=== PATIENT | female | born 1990 | race Caucasian/White ===

== ENCOUNTER 2020-11-13 00:02 | Inpatient (IN) ==
[2020-11-13] MEDS ORDERED: Metoclopramide 10 MG/2 ML VIAL IVP PRN (00:04)
[2020-11-13] MEDS ORDERED: Lidocaine 1% 20 ML MDV INFILT PRN (00:04)
[2020-11-13] MEDS ORDERED: Naloxone 0.4 MG/ML INJ IVP PRN (00:04)
[2020-11-13] MEDS ORDERED: *HR* Nalbuphine 10 MG/ML AMPUL IV PRN (00:04)
[2020-11-13] MEDS ORDERED: Ondansetron 4 MG/2 ML VIAL IVP PRN (00:04)
[2020-11-13] MEDS ORDERED: Famotidine 20 MG/2 ML VIAL IVP PRN (00:04)
[2020-11-13] MEDS ORDERED: Ringers Solution, Lactated 1,000 ML IVC SCH (00:15)
[2020-11-13 00:37] LABS: Basophils # 0.1 K/mcL (0.0-0.2); Basophils % 0.4 %; Eosinophils # 0.2 K/mcL (0.0-0.6); Hematocrit 37.7 % (35.3-44.9); Hemoglobin 11.9 g/dL (11.5-15.4); Immature Granulocytes % 1.3 % (0-4); Lymphocytes # 2.2 K/mcL (0.6-4.6); Lymphocytes % 14.8 %; Mean Corpuscular HGB Conc 31.6 g/dL (31.6-35.5); Mean Corpuscular Hemoglobin 26.7 pg (28.0-33.3); Mean Corpuscular Volume 84.5 fL (83.0-100.0); Mean Platelet Volume 11.3 fL (9.4-12.4); Monocytes % 6.8 %; Neutrophils # 11.2 K/mcL (1.6-8.9); Platelet Count 314 K/mcL (140-400); Red Blood Count 4.46 M/mcL (3.82-4.97); Red Cell Distribution Width 15.4 % (11.5-14.5); Segmented Neutrophils % 75.7 %; White Blood Count 14.8 K/mcL (4.3-11.1)
[2020-11-13 00:44] LABS: Amphetamine Screen,Urine Negative ng/mL (Cutoff=1000); Barbiturate Screen,Urine Negative ng/mL (Cutoff=200); Benzodiazepines Screen,Urine Negative ng/mL (Cutoff=200); Cannabinoid Screen,Urine Negative ng/mL (Cutoff = 50); Cocaine Screen,Urine Negative ng/mL (Cutoff= 300); Opiate Screen,Urine Negative ng/mL (Cutoff=300); Phencyclidine Screen,Urine Negative ng/mL (Cutoff=25); Protein/Creatinine Ratio,Urine 0.17 mg/mg (0.00-0.20)
[2020-11-13] MEDS: miSOPROStoL 25 MCG TABLET PO PRN ×2 (00:48→04:55)
[2020-11-13 00:54] LABS: Alanine Aminotransferase 10 Units/L (7-52); Aspartate Amino Transferase 12 Units/L (13-39); BUN/Creatinine Ratio 18 (6-26); Blood Urea Nitrogen 11 mg/dL (6-20); Lactate Dehydrogenase 133 Units/L (140-271); Uric Acid 4.1 mg/dL (2.3-7.6); eGFR For African Americans > 60 (> 60); eGFR For Non-African Americans > 60 (> 60)
[2020-11-13 01:09] LABS: Influenza A PCR Negative (Negative); Influenza B PCR Negative (Negative); Resp. Syncytial Virus PCR Negative (Negative)
[2020-11-13 01:12] LABS: SARS-CoV-2 by PCR (In House) Negative (Negative)
[2020-11-13] MEDS ORDERED: Epidural Premix (fent/bupiv) 110 ML EP SCH (08:30)
[2020-11-13] MEDS ORDERED: EPHEDrine 50 MG/ML VIAL IVP PRN (08:30)
[2020-11-13] MEDS ORDERED: miSOPROStoL 25 MCG TABLET PO ONE (09:00)
== END 2020-11-13 14:45 | disposition home or self-care (01) | DRG 833 ==
LOC: 1NENULAB 00:02
PROVIDERS: ADMIT Student in an Organized Health Care Education/Training Program; ATTEND Student in an Organized Health Care Education/Training Program

== ENCOUNTER 2020-11-19 23:56 | Inpatient (IN) ==
[2020-11-20] MEDS ORDERED: Acetaminophen 325 MG TABLET PO ONE (00:58)
[2020-11-20] MEDS ORDERED: Ringers Solution, Lactated 1,000 ML ONE (01:01)
[2020-11-20] MEDS ORDERED: Famotidine 20 MG/2 ML VIAL IVP PRN (01:14)
[2020-11-20] MEDS ORDERED: Metoclopramide 10 MG/2 ML VIAL IVP PRN (01:14)
[2020-11-20] MEDS ORDERED: Naloxone 0.4 MG/ML INJ IVP PRN ×2 (01:14→14:36)
[2020-11-20] MEDS ORDERED: Ringers Solution, Lactated 1,000 ML IVC SCH (01:15)
[2020-11-20 01:45] LABS: Basophils # 0.1 K/mcL (0.0-0.2); Basophils % 0.3 %; Eosinophils # 0.1 K/mcL (0.0-0.6); Eosinophils % 0.9 %; Hematocrit 36.5 % (35.3-44.9); Hemoglobin 11.6 g/dL (11.5-15.4); Lymphocytes # 2.1 K/mcL (0.6-4.6); Lymphocytes % 14.6 %; Mean Corpuscular HGB Conc 31.8 g/dL (31.6-35.5); Mean Corpuscular Hemoglobin 26.6 pg (28.0-33.3); Mean Corpuscular Volume 83.7 fL (83.0-100.0); Mean Platelet Volume 11.9 fL (9.4-12.4); Monocytes % 6.7 %; Platelet Count 301 K/mcL (140-400); Protein/Creatinine Ratio,Urine 0.14 mg/mg (0.00-0.20); Red Blood Count 4.36 M/mcL (3.82-4.97); Red Cell Distribution Width 15.2 % (11.5-14.5); Segmented Neutrophils % 76.5 %; White Blood Count 14.4 K/mcL (4.3-11.1)
[2020-11-20 01:46] LABS: Amphetamine Screen,Urine Negative ng/mL (Cutoff=1000); Barbiturate Screen,Urine Negative ng/mL (Cutoff=200); Benzodiazepines Screen,Urine Negative ng/mL (Cutoff=200); Cannabinoid Screen,Urine Negative ng/mL (Cutoff = 50); Cocaine Screen,Urine Negative ng/mL (Cutoff= 300); Opiate Screen,Urine Negative ng/mL (Cutoff=300); Phencyclidine Screen,Urine Negative ng/mL (Cutoff=25)
[2020-11-20 01:57] LABS: Alanine Aminotransferase 8 Units/L (7-52); Aspartate Amino Transferase 13 Units/L (13-39); BUN/Creatinine Ratio 16 (6-26); Blood Urea Nitrogen 9 mg/dL (6-20); Lactate Dehydrogenase 146 Units/L (140-271); Uric Acid 4.4 mg/dL (2.3-7.6); eGFR For African Americans > 60 (> 60); eGFR For Non-African Americans > 60 (> 60)
[2020-11-20] MEDS: miSOPROStoL 25 MCG TABLET PO PRN ×2 (02:09→06:09)
[2020-11-20 02:45] LABS: Adenovirus Not Detected (Not Detect); Bordetella Pertussis Not Detected (Not Detect); Chlamydophila pneumoniae Not Detected (Not Detect); Coronavirus 229E Not Detected (Not Detect); Coronavirus HKU1 Not Detected (Not Detect); Coronavirus NL63 Not Detected (Not Detect); Coronavirus OC43 Not Detected (Not Detect); Human Metapneumovirus Not Detected (Not Detect); Human Rhinovirus/Enterovirus Not Detected (Not Detect); Influenza A Subtype 2009 H1 Not Detected (Not Detect); Influenza B Not Detected (Not Detect); Mycoplasma pneumoniae Not Detected (Not Detect); Parainfluenza Virus 1 Not Detected (Not Detect); Parainfluenza Virus 2 Not Detected (Not Detect); Parainfluenza Virus 3 Not Detected (Not Detect); Parainfluenza Virus 4 Not Detected (Not Detect); Respiratory Syncytial Virus Not Detected (Not Detect); SARS-CoV-2 Not Detected (Not Detect)
[2020-11-20] MEDS: Ringers Solution, Lactated 1,000 ML IVC SCH ×4 (06:09→23:44)
[2020-11-20] MEDS: miSOPROStoL 25 MCG TABLET PO SCH ×3 (10:46→21:43)
[2020-11-20] MEDS ORDERED: *HR* FentaNYL (PF) 100 MCG/2 ML VIAL EP ONE (14:36)
[2020-11-20] MEDS ORDERED: Ropivacaine/PF 0.2% 20 ML VIAL EP ONE (14:36)
[2020-11-20] MEDS ORDERED: Ondansetron 4 MG/2 ML VIAL IVP PRN (14:36)
[2020-11-20] MEDS ORDERED: EPHEDrine 50 MG/ML VIAL IVP PRN (14:36)
[2020-11-20] MEDS: Epidural Premix (fent/bupiv) 110 ML EP SCH (21:43)
[2020-11-20] MEDS ORDERED: Oxytocin 20 units/ LR 1000 mL 20 UNIT/1,000 ML BAG IVC SCH (22:15)
[2020-11-21] MEDS ORDERED: 0.9 % Sodium Chloride 1,000 ML ONE (01:47)
[2020-11-21] MEDS: Epidural Premix (fent/bupiv) 110 ML EP SCH (03:48)
[2020-11-21] MEDS: Ringers Solution, Lactated 1,000 ML IVC SCH (03:49)
[2020-11-21] MEDS ORDERED: Penicillin G Potassium 5,000,000 UNIT in 0.9 % Sodium Chloride Mini Bag 100 ML IVPB ONE (10:27)
[2020-11-21] MEDS ORDERED: Ropivacaine/PF 0.2% 20 ML VIAL ONE (13:43)
[2020-11-21] MEDS: Penicillin G Potassium 2,500,000 UNIT/105 ML MLS IVPB SCH ×2 (17:19→21:25)
[2020-11-21] MEDS ORDERED: Lidocaine 1% 20 ML MDV ONE (22:24)
[2020-11-21] MEDS ORDERED: Measles/Mumps/Rubella Vacc 0.5 ML VIAL SQ PRN (23:50)
[2020-11-21] MEDS ORDERED: Oxytocin 20 units/ LR 1000 mL 20 UNIT/1,000 ML BAG IVC SCH (23:50)
[2020-11-21] MEDS ORDERED: Lanolin 7 G OINT...G. TP PRN (23:50)
[2020-11-21] MEDS ORDERED: Ondansetron ODT 4 MG TAB.RAPDIS SL PRN (23:50)
[2020-11-21] MEDS ORDERED: Benzocaine/Menthol 56 GM AEROSOL SPRAY TP PRN (23:50)
[2020-11-22] MEDS: Acetaminophen 325 MG TABLET PO SCH ×3 (00:07→17:04)
[2020-11-22] MEDS: Ibuprofen 600 MG TABLET PO SCH ×3 (04:13→20:10)
[2020-11-22 04:54] LABS: Eosinophils % 0.1 %; Hematocrit 32.3 % (35.3-44.9)
[2020-11-22 04:56] LABS: Basophils % 0.1 %; Hemoglobin 10.2 g/dL (11.5-15.4); Mean Corpuscular HGB Conc 31.6 g/dL (31.6-35.5); Mean Corpuscular Hemoglobin 26.8 pg (28.0-33.3); Mean Platelet Volume 11.3 fL (9.4-12.4); Monocytes # 1.7 K/mcL (0.0-1.3); Neutrophils # 24.4 K/mcL (1.6-8.9); Platelet Count 283 K/mcL (140-400); Red Cell Distribution Width 15.2 % (11.5-14.5); Segmented Neutrophils % 85.8 %; White Blood Count 28.4 K/mcL (4.3-11.1)
[2020-11-22] MEDS: Prenatal Vit/FA 1 EACH TABLET PO SCH (09:04)
[2020-11-22] MEDS: Famotidine 20 MG TABLET PO SCH (09:04)
[2020-11-23] MEDS: Acetaminophen 325 MG TABLET PO SCH ×2 (04:03→09:07)
[2020-11-23] MEDS: Ibuprofen 600 MG TABLET PO SCH ×2 (04:04→09:08)
[2020-11-23 07:53] VITALS: BP 141/100; PULSE 112; TEMP 97.8; O2SAT 97
[2020-11-23] MEDS: Prenatal Vit/FA 1 EACH TABLET PO SCH (09:07)
[2020-11-23] MEDS: Famotidine 20 MG TABLET PO SCH (09:07)
[2020-11-23 09:12] LABS: Basophils # 0.1 K/mcL (0.0-0.2); Basophils % 0.5 %; Eosinophils # 0.4 K/mcL (0.0-0.6); Eosinophils % 2.5 %; Hematocrit 31.9 % (35.3-44.9); Hemoglobin 9.8 g/dL (11.5-15.4); Immature Granulocytes % 1.1 % (0-4); Lymphocytes # 3.5 K/mcL (0.6-4.6); Lymphocytes % 19.9 %; Mean Corpuscular HGB Conc 30.7 g/dL (31.6-35.5); Mean Corpuscular Hemoglobin 26.3 pg (28.0-33.3); Mean Corpuscular Volume 85.8 fL (83.0-100.0); Mean Platelet Volume 11.7 fL (9.4-12.4); Monocytes % 5.5 %; Neutrophils # 12.3 K/mcL (1.6-8.9); Platelet Count 278 K/mcL (140-400); Red Blood Count 3.72 M/mcL (3.82-4.97); Red Cell Distribution Width 15.5 % (11.5-14.5); Segmented Neutrophils % 70.5 %; White Blood Count 17.4 K/mcL (4.3-11.1)
== END 2020-11-23 12:40 | disposition home or self-care (01) | DRG 806 ==
LOC: 1NENULAB 23:56 → 1NENUOBS 11-22 01:51
PROVIDERS: ADMIT Student in an Organized Health Care Education/Training Program; ATTEND Student in an Organized Health Care Education/Training Program